=== PATIENT | female | born 1970 | race Caucasian/White ===

== ENCOUNTER → 2017-02-11 | Outpatient (CLI) | payer MEDICAID | LOC: BRMIMAGING 08:27 | PROVIDERS: ATTEND Registered Nurse | DX: K76.9 Liver disease, unspecified (principal) | CPT/HCPCS: 76700-PO ==

== ENCOUNTER → 2018-05-26 | Outpatient (CLI) | payer OTHER | LOC: BRMIMAGING 09:20 | PROVIDERS: ATTEND Registered Nurse | DX: M54.2 Cervicalgia (principal); M54.6 Pain in thoracic spine | CPT/HCPCS: 72050-PO; 72070-PO ==